=== PATIENT | male | born 1970 | race Caucasian/White ===

== ENCOUNTER 2021-12-24 04:53 | Emergency (ER) | payer MEDICARE, OTHER ==
[2021-12-24 05:47] LABS: HEMOGLOBIN 14.4 gm/dl (14.0-17.5); RED BLOOD COUNT 4.55 M/UL (4.20-5.50); WHITE BLOOD COUNT 9.2 K/UL (4.5-11.0)
[2021-12-24 06:25] LABS: BUN/CREATININE RATIO 14 (0-10)
[2021-12-24] MEDS ORDERED: BUPRENORPHIN-N1 EACH SL (16:00)
[2021-12-24] MEDS ORDERED: COZAAR50 MG PO (16:01)
[2021-12-24] MEDS ORDERED: WELLBUTRIN SR150 MG PO (16:01)
[2021-12-24] MEDS ORDERED: OMEPRAZOLE40 MG PO (16:01)
[2021-12-24] MEDS ORDERED: NEURONTIN300 MG PO (16:03)
== END 2021-12-25 02:28 | disposition home or self-care (01) ==
LOC: ER1 04:53
PROVIDERS: Student in an Organized Health Care Education/Training Program
DX: J18.9 Pneumonia, unspecified organism (principal); K20.90 Esophagitis, unspecified without bleeding; I10 Essential (primary) hypertension; F17.210 Nicotine dependence, cigarettes, uncomplicated; Z20.822 Contact with and (suspected) exposure to COVID-19
CPT/HCPCS: 0240U; 36600; 80053; 82550; 82553; 82803; 82962; 84484; 85025; 85610; 85730; 93005; 96365; 96366; 96375; 99285; C9113; J0456; J0696; J7030; Q9967